=== PATIENT | female | born 1965 | race African-American/Black ===

== ENCOUNTER 2022-12-30 06:27 | Day surgery (SDC) | payer OTHER ==
[~2022-12-30] VITALS: Ht 167.6 cm; Wt 98.0 kg
[2022-12-30] MEDS ORDERED: MIDAZOLAM 2 MG/2 ML VIAL ONE (07:37)
[2022-12-30] MEDS ORDERED: LIDOCAINE 2% 100 MG/5 ML UJET TP ONE (07:37)
[2022-12-30] MEDS ORDERED: fentaNYL citrate 0.05 MG/ML VIAL ONE (07:37)
[2022-12-30] MEDS ORDERED: MIDAZOLAM 2 MG/2 ML VIAL IVP ONE (08:55)
[2022-12-30] MEDS ORDERED: fentaNYL citrate 0.05 MG/ML VIAL IVP ONE (08:55)
== END 2022-12-30 09:20 | disposition home or self-care (01) ==
LOC: MDS 06:27 → MMU 06:28 → MDS 09:20
PROVIDERS: ATTEND Internal Medicine Gastroenterology
DX: Z12.11 Encounter for screening for malignant neoplasm of colon (principal); D12.2 Benign neoplasm of ascending colon; D12.3 Benign neoplasm of transverse colon; D12.7 Benign neoplasm of rectosigmoid junction; K31.9 Disease of stomach and duodenum, unspecified
CPT/HCPCS: J2250; J3010